=== PATIENT | male | born 1990 | race Caucasian/White ===

== ENCOUNTER 2016-10-16 17:06 | Inpatient (IN) | payer OTHER ==
[2016-10-16] MEDS ORDERED: OXYCODONE-ACETAMINOPHEN 5-325 MG TABLET PO ONE (17:25)
--- NOTE | 2016-10-16 17:27 | ER Document Report ---
ED Medical Screen (RME) - General Chief Complaint: Abscess Stated Complaint: POSSIBLE ABCESS Notes: 26-year-old male complains of a rectal abscess that started about 5 days ago getting worse and began with fever yesterday. No underlying medical problems. TRAVEL OUTSIDE OF THE [place] IN LAST 30 DAYS: No - Related Data Allergies/Adverse Reactions: No Known Allergies Allergy (Verified 10/16/16 17:09) Past Medical History Renal/ Medical History: Denies: Hx Peritoneal Dialysis Physical Exam - Vital signs Vitals: Temp Pulse Resp BP Pulse Ox 100.2 F 115 H 16 151/82 H 98 10/16/16 17:10 10/16/16 17:10 10/16/16 17:10 10/16/16 17:10 10/16/16 17:10 Course - Vital Signs Vital signs: Temp Pulse Resp BP Pulse Ox 100.2 F 115 H 16 151/82 H 98 10/16/16 17:10 10/16/16 17:10 10/16/16 17:10 10/16/16 17:10 10/16/16 17:10
[2016-10-16] MEDS ORDERED: NORMAL SALINE 1000 ML 1,000 ML IV ONE (18:03)
--- NOTE | 2016-10-16 18:08 | ER Document Report ---
ED Skin Rash/Insect Bite/Abscs - General Chief Complaint: Abscess Stated Complaint: POSSIBLE ABCESS Time seen by provider: 18:03 Mode of Arrival: Ambulatory Information source: Patient Notes: 26-year-old male presents to ED for complaint of pain and an abscess at between the back of his scrotum and his anus. Started about 5 days ago pains been getting worse daily. Started having a fever yesterday. Has a past medical history of kidney stones depression anxiety and PTSD and insomnia. He is a marine. TRAVEL OUTSIDE OF THE [place] IN LAST 30 DAYS: No - HPI Patient complains to provider of: Tender/swollen area Onset: Other Onset/Duration: Gradual - 5 days Quality of pain: Sharp, Throbbing Severity: Moderate Pain Level: 4 Skin Character: Abscess Skin Temperature: Hot Quality of rash: Painful Exacerbated by: Denies Relieved by: Denies Similar symptoms previously: No Recently seen / treated by doctor: No - Related Data Allergies/Adverse Reactions: No Known Allergies Allergy (Verified 10/16/16 17:09) Past Medical History - General Information source: Patient - Social History Smoking Status: Former Smoker - States he just quit Cigarette use (# per day): No Chew tobacco use (# tins/day): No Smoking Education Provided: No Frequency of alcohol use: Social Drug Abuse: None - History of addiction to [employer] Occupation: Marine Lives with: Family Family History: Arthritis, CAD, COPD, CVA, DM, Hyperlipidemia, Hypertension, Malignancy, Thyroid Disfunction Patient has suicidal ideation: No Patient has homicidal ideation: No - Past Medical History Cardiac Medical History: Reports: None Pulmonary Medical History: Reports: None EENT Medical History: Reports: None Neurological Medical History: Reports: None Endocrine Medical History: Reports: None Renal/ Medical History: Reports: Hx Kidney Stones Malignancy Medical History: Reports None GI Medical History: Reports: None Musculoskeltal Medical History: Reports Hx Musculoskeletal Trauma - Fractured finger and he sliced part of his knee with a chain saw at 17 year Skin Medical History: Reports None Psychiatric Medical History: Reports: Hx Anxiety, Hx Depression, Hx Post Traumatic Stress Disorder, Other - Insomnia Traumatic Medical History: Reports: None Infectious Medical History: Reports: None Surgical Hx: Negative Past Surgical History: Reports: None - Immunizations Immunizations up to date: Yes Hx Diphtheria, Pertussis, Tetanus Vaccination: Yes Review of Systems - Review of Systems Constitutional: No symptoms reported EENT: No symptoms reported Cardiovascular: No symptoms reported Respiratory: No symptoms reported Gastrointestinal: No symptoms reported Genitourinary: No symptoms reported Male Genitourinary: No symptoms reported Musculoskeletal: No symptoms reported Skin: Other - Tender slowly area starting at the back of the scrotum almost to the anus Hematologic/Lymphatic: No symptoms reported Neurological/Psychological: No symptoms reported -: Yes All other systems reviewed and negative Physical Exam - Vital signs Vitals: Temp Pulse Resp BP Pulse Ox 100.2 F 115 H 16 151/82 H 98 10/16/16 17:10 10/16/16 17:10 10/16/16 17:10 10/16/16 17:10 10/16/16 17:10 Interpretation: Hypertensive, Tachycardic, Febrile - General General appearance: Appears well, Alert - HEENT Head: Normocephalic, Atraumatic Eyes: Normal Pupils: PERRL - Respiratory Respiratory status: No respiratory distress Chest status: Nontender Breath sounds: Normal Chest palpation: Normal - Cardiovascular Rhythm: Regular Heart sounds: Normal auscultation Murmur: No - Abdominal Inspection: Normal Distension: No distension Bowel sounds: Normal Tenderness: Nontender Organomegaly: No organomegaly - Back Back: Normal, Nontender - Extremities General upper extremity: Normal inspection, Nontender, Normal color, Normal ROM , Normal temperature General lower extremity: Normal inspection, Nontender, Normal color, Normal ROM , Normal temperature, Normal weight bearing. No: Robbie's sign - Neurological Neuro grossly intact: Yes Cognition: Normal Orientation: AAOx4 Gil Coma Scale Eye Opening: Spontaneous Kerrick Coma Scale Verbal: Oriented Gil Coma Scale Motor: Obeys Commands Kerrick Coma Scale Total: 15 Speech: Normal Motor strength normal: LUE, RUE, LLE, RLE Sensory: Normal - Psychological Associated symptoms: Normal affect, Normal mood - Skin Skin Temperature: Warm Skin Moisture: Dry Skin Color: Normal Skin irregularity: Abscess - Between scrotum and anus Course - Re-evaluation Re-evalutation: 10/16/16 18:40 Consulted surgeon for a abscess between the scrotum and anus. He came to the room and saw the patient. Stated to keep the patient nothing by mouth get the anabolic's going in the IV fluids:. He said he will check back to take him to surgery later. He states he is in the middle of the case. - Vital Signs Vital signs: Temp Pulse Resp BP Pulse Ox 102.4 F H 115 H 16 151/82 H 98 10/16/16 20:16 10/16/16 17:10 10/16/16 17:10 10/16/16 17:10 10/16/16 17:10 - Laboratory Result Diagrams: 10/16/16 18:25 10/16/16 18:25 Laboratory results interpreted by me: 10/16/16 10/16/16 10/16/16 18:25 18:25 20:28 WBC 11.3 H RBC 4.15 L Hgb 12.6 L Hct 36.2 L Seg Neutrophils % 78.3 H Lymphocytes % 10.3 L Absolute Neutrophils 8.8 H Creatinine 1.27 H AST 15 L Urine Urobilinogen 4.0 H - Consults Dr Reynoso Time consulted: 18:30 Reason for consultation: 10/16/16 18:41 abscess between scrotum and anus Discharge - Discharge Clinical Impression: Abscess of perineum Disposition: ADMITTED INPATIENT Admitting Provider: Surgicalist - [facility] Admitted: Surgical Floor
[2016-10-16] MEDS ORDERED: CLINDAMYCIN 600 MG/D5W RTU 50 ML IV ONE (18:15)
[2016-10-16 18:56] LABS: ABSOLUTE LYMPHOCYTES (AUTO) 1.2 10^3/uL (0.5-4.7); ABSOLUTE MONOCYTES (AUTO) 1.2 10^3/uL (0.1-1.4); ABSOLUTE NEUT (AUTO) 8.8 10^3/uL (1.7-8.2); BASOPHILS % (AUTO) 0.2 % (0-2); EOSINOPHILS % (AUTO) 0.4 % (0-6); HEMATOCRIT 36.2 % (37.9-51.0); HEMOGLOBIN 12.6 g/dL (13.5-17.0); HGB HCT DIFFERENCE 1.6; LYMPHOCYTES % (AUTO) 10.3 % (13-45); MEAN CORPUSCULAR HEMOGLOBIN 30.4 pg (27.0-33.4); MEAN CORPUSCULAR HGB CONC 34.9 g/dL (32.0-36.0); MEAN CORPUSCULAR VOLUME 87 fl (80-97); MONOCYTES % (AUTO) 10.8 % (3-13); RED BLOOD COUNT 4.15 10^6/uL (4.35-5.55); RED CELL DISTRIBUTION WIDTH 11.6 % (11.5-14.0); SEGMENTED NEUTROPHILS % (AUTO) 78.3 % (42-78); WHITE BLOOD COUNT 11.3 10^3/uL (4.0-10.5)
[2016-10-16 19:08] LABS: ALANINE AMINOTRANSFERASE 27 U/L (21-72); ALBUMIN 4.1 g/dL (3.5-5.0); ALKALINE PHOSPHATASE 55 U/L (38-126); ANION GAP 13 (5-19); ASPARTATE AMINO TRANSFERASE 15 U/L (17-59); BILIRUBIN,DIRECT 0.2 mg/dL (0.0-0.4); BILIRUBIN,TOTAL 1.2 mg/dL (0.2-1.3); BLOOD UREA NITROGEN 15 mg/dL (7-20); CALCIUM 9.3 mg/dL (8.4-10.2); CARBON DIOXIDE 28 mmol/L (22-30); CHLORIDE 99 mmol/L (98-107); CREATININE RESULT 1.27 mg/dL (0.52-1.25); GLUCOSE 101 mg/dL (75-110); POTASSIUM 4.3 mmol/L (3.6-5.0); SODIUM 139.7 mmol/L (137-145); TOTAL PROTEIN 6.7 g/dL (6.3-8.2)
[2016-10-16] MEDS ORDERED: KETOROLAC TROMETHAMINE INJ/PF 30 MG/1 ML SDV IV ONE (20:38)
[2016-10-16 20:39] LABS: APPEARANCE,URINE SLIGHTLY-CLOUDY; BILIRUBIN,URINE NEGATIVE (NEGATIVE); GLUCOSE, URINE NEGATIVE (NEGATIVE); KETONES,URINE NEGATIVE (NEGATIVE); LEUKOCYTE ESTERASE,URINE NEGATIVE (NEGATIVE); NITRITE,URINE NEGATIVE (NEGATIVE); PROTEIN,URINE NEGATIVE (NEGATIVE); URINE SPECIFIC GRAVITY 1.018
--- NOTE | 2016-10-16 21:19 | HISTORY AND PHYSICAL E ---
History and Physical NAME: NIKOLAS SANTOS : 1990 AGE: 26Y ADMITTED: 10/16/2016 ROOM: CHIEF COMPLAINT: Pain in the perineal area. HISTORY OF PRESENT ILLNESS: This is a 26-year-old male who has been complaining of gradually worsening pain in the perineal area for the past 5 days. He admits to having some difficulty with bowel movement. Denies any dysuria. He has a low-grade fever. REVIEW OF SYSTEMS: As in HPI. Denies any chest pain, shortness of breath, or balance problems. No headaches or earaches. PAST MEDICAL HISTORY: [place] teeth removal. He had narcotic addiction about 3 years ago. ALLERGIES: None known. FAMILY HISTORY: Non-contributory. SOCIAL HISTORY: Denies smoking. Drinks socially. No drug use at the present time. He did have a history of narcotic addiction according to his . PHYSICAL EXAMINATION: GENERAL: A well-developed, well-nourished, 26-year-old male, alert and oriented, complaining of perineal pain. HEENT: Neck is supple. No thyromegaly. LUNGS: Clear. HEART: Regular sinus rhythm. ABDOMEN: Soft, nontender. GENITOURINARY: He has some redness in the perineal area just above the rectum just at the area of the scrotum. This is noted to be mildly swollen and tender. IMPRESSION: Perineal abscess. PLAN: IV antibiotics. N.p.o. Hydration. The patient is going for a CT scan tonight and possibly do an I and D of the abscess early a.m. Blood cultures were obtained and started already on clindamycin 900 mg IV q.6 hours. DICTATING PHYSICIAN: MARIAH CAMPOS M.D. [id number] PHY#: [id number] ID: [id number] JOB#: [id number] ACCT: [id number] cc:John RODRIGUES MD
[2016-10-16] MEDS ORDERED: NORMAL SALINE 1000 ML 1,000 ML IV PRN (23:26)
[2016-10-16] MEDS ORDERED: CLINDAMYCIN IV ONE (23:40)
[2016-10-16] MEDS ORDERED: D5W RTU IV ONE (23:40)
[2016-10-16] MEDS: CLINDAMYCIN 900 MG/D5W RTU 50 ML IV SCH (23:48)
[2016-10-17] MEDS: KETOROLAC TROMETHAMINE INJ/PF 30 MG/1 ML SDV IV PRN ×3 (02:52→22:50)
[2016-10-17] MEDS: CLINDAMYCIN 900 MG/D5W RTU 50 ML IV SCH ×4 (05:50→23:00)
[2016-10-17] MEDS ORDERED: ACETAMINOPHEN 325 MG TABLET ONE (08:26)
[2016-10-17] MEDS: METRONIDAZOLE 500 MG/NS RTU 100 ML IV SCH ×3 (08:41→20:20)
--- NOTE | 2016-10-17 08:47 | PDOC PROGRESS REPORT ---
Subjective Progress Note for:: 10/17/16 Subjective:: Perineal pain Physical Exam Vital Signs: Temp Pulse Resp BP Pulse Ox 100.3 F 95 18 126/56 H 97 10/17/16 07:45 10/17/16 07:45 10/17/16 07:45 10/17/16 07:45 10/17/16 07:45 Intake & Output 10/16/16 10/17/16 10/18/16 06:59 06:59 06:59 Intake Total 904 Balance 904 General appearance: PRESENT: cooperative, mild distress - Alert and nontoxic but obviously in pain. Respiratory exam: PRESENT: clear to auscultation deny Cardiovascular exam: PRESENT: RRR GI/Abdominal exam: PRESENT: other - Soft, nondistended nontender to palpation. Rectal exam: PRESENT: other - Digital rectal exam does not reveal any focal tenderness nor fluctuance however there is a 5 x 3 cm region of erythema and swelling and fluctuance and tenderness between the anus and the scrotum. There is no erythema nor tenderness in the scrotum nor the groin. Assessment & Plan - Diagnosis (1) Abscess of perineum Is this a current diagnosis for this admission?: YesPlan: I do not think he has a perianal abscess based on my exam. But he does have a perineal abscess. I will plan incision and drainage of the abscess in the operating room. I have discussed with the patient the risk and benefits of the procedure including risk of the infection, bleeding, adjacent structure injury, prolonged wound healing. Patient understands and agrees to proceed.
[2016-10-17] MEDS ORDERED: PROPOFOL INJ 200 MG/20 ML VIAL IV ONE (09:09)
[2016-10-17] MEDS ORDERED: MIDAZOLAM 2 MG/2 ML INJ ONE (09:09)
[2016-10-17] MEDS ORDERED: FENTANYL CITRATE INJ/PF 250 MCG/5 ML AMPULE ONE (09:09)
[2016-10-17] MEDS ORDERED: ACETAMINOPHEN 0 ML IV ONE (09:09)
[2016-10-17] MEDS ORDERED: BUPIVACAINE HCL 0.25 % INJ/PF (2.5 MG/1 ML) 30 ML VIAL ONE ×2 (09:30→09:31)
[2016-10-17] MEDS ORDERED: BUPIVACAINE HCL 0.25% /EPINEPHRINE INJ/PF 30 ML SDV ONE (09:31)
[2016-10-17] MEDS ORDERED: IBUPROFEN INJ 800 MG/8 ML VIAL IV ONE (09:47)
[2016-10-17] MEDS ORDERED: DIPHENHYDRAMINE HCL 50 MG/ML VIAL IV PRN (10:25)
[2016-10-17] MEDS ORDERED: MORPHINE SULFATE 10 MG/ML INJ IV PRN (10:25)
[2016-10-17] MEDS ORDERED: MEPERIDINE HCL/PF INJ 25 MG/1 ML DISP.SYRIN IV PRN (10:25)
[2016-10-17] MEDS ORDERED: OXYCODONE-ACETAMINOPHEN 5-325 MG TABLET PO PRN ×2 (10:25)
[2016-10-17] MEDS ORDERED: PROMETHAZINE HCL INJ 25 MG/1 ML VIAL IV PRN ×2 (10:25)
[2016-10-17] MEDS ORDERED: FENTANYL CITRATE INJ/PF 100 MCG/2 ML AMPUL IV PRN ×3 (10:25)
--- NOTE | 2016-10-17 10:28 | Operative Report ---
Operative Report DATE OF SURGERY: 10/17/16 PREOPERATIVE DIAGNOSIS: Perineal abscess POSTOPERATIVE DIAGNOSIS: 3 x 5 cm perineal abscess OPERATION: Perineal abscess incision and drainage SURGEON: MICHEL DELUNA ANESTHESIA: GA TISSUE REMOVED OR ALTERED: Pus sent for Gram stain and culture COMPLICATIONS: None ESTIMATED BLOOD LOSS: minimal INTRAOPERATIVE FINDINGS: 3 x 5 cm abscess pocket in the perineal region. PROCEDURE: Informed consent was obtained. Patient was brought to the operating room. After saturation induction of general anesthesia patient was placed in a prone jackknife position and his buttocks taped apart. His perineum was prepped and draped in usual sterile fashion the abscess laid between the anus and the scrotum local anesthetic was administered 18-gauge needle was placed into the abscess cavity aspirating copious amount of the very thick pus. This perineal abscess was opened with a scalpel. Skin edge hemostasis was obtained with electrocautery. The abscess cavity measured about 3 x 5 cm in size. It was irrigated out. Hemostasis appeared to be good. Digital palpation revealed no undrained tracts. It appeared the confine to the perineum and not extending to the perianal region. It was packed with gauze. Patient tolerated procedure well with no apparent complications.
[2016-10-17] MEDS ORDERED: QUETIAPINE FUMARATE 25 MG TABLET PO PRN (10:30)
[2016-10-17] MEDS ORDERED: LIDOCAINE 2% INJ-PF (20 MG/ML) 10 ML AMPUL ONE (14:02)
[2016-10-17] MEDS ORDERED: SUCCINYLCHOLINE CHLORIDE INJ 200 MG/10 ML VIAL ONE (14:02)
[2016-10-17] MEDS: ONDANSETRON HCL INJ/PF 4 MG/2 ML SDV IV PRN (15:08)
[2016-10-17] MEDS: MORPHINE SULFATE 10 MG/ML INJ IV PRN ×2 (15:08→19:30)
[2016-10-18] MEDS: MORPHINE SULFATE 10 MG/ML INJ IV PRN ×4 (02:58→19:02)
[2016-10-18] MEDS: METRONIDAZOLE 500 MG/NS RTU 100 ML IV SCH ×4 (02:58→20:55)
[2016-10-18] MEDS: CLINDAMYCIN 900 MG/D5W RTU 50 ML IV SCH ×4 (05:53→23:33)
[2016-10-18] MEDS: ACETAMINOPHEN 325 MG TABLET PO PRN ×2 (08:39→20:56)
[2016-10-18] MEDS: ONDANSETRON HCL INJ/PF 4 MG/2 ML SDV IV PRN (08:39)
--- NOTE | 2016-10-18 10:53 | PDOC PROGRESS REPORT ---
Subjective Progress Note for:: 10/18/16 Subjective:: Still having some pain; otherwise uneventful night. Physical Exam Vital Signs: Temp Pulse Resp BP Pulse Ox 98.8 F 83 16 111/52 L 96 10/18/16 00:03 10/18/16 00:03 10/18/16 00:03 10/18/16 00:03 10/18/16 00:03 Intake & Output 10/17/16 10/18/16 10/19/16 06:59 06:59 06:59 Intake Total 904 8369 Output Total 610 Balance 904 7759 Rectal exam: PRESENT: other - Patient rolled in left lateral decubitus position. Packing removed. No active drainage. Perineum anteriorly still erythematous and tender Assessment & Plan - Diagnosis (1) Abscess of perineum Is this a current diagnosis for this admission?: YesPlan: 1. Status post operative drainage left perineal abscess, packing removed, low pain threshold, still with residual erythema and edema anteriorly. 2. We'll get into the shower, ambulate , and continue intravenous antibiotics.
[2016-10-19] MEDS: METRONIDAZOLE 500 MG/NS RTU 100 ML IV SCH ×2 (04:15→09:47)
[2016-10-19] MEDS: CLINDAMYCIN 900 MG/D5W RTU 50 ML IV SCH (05:32)
--- NOTE | 2016-10-19 08:03 | DISCHARGE SUMMARY E ---
Discharge Summary NAME: NIKOLAS SANTOS : 1990 AGE: 26Y ADMITTED: 10/16/2016 DISCHARGED: ADMITTING DIAGNOSIS: Perineal abscess, perineal cellulitis. DISCHARGE DIAGNOSIS: Perineal abscess, perineal cellulitis. OPERATIVE INTERVENTION: Incision and drainage of the perineal abscess. The patient was admitted for pain management and also management of a perineal cellulitis. After admission, the patient continued to receive IV antibiotics. The pain is better, cellulitis resolving. On examination, wound is clean. Pain is under control. DISCHARGE PLAN: Admitting and discharge medications for pain. Stool softener. Follow up in the outpatient surgical clinic in 2 weeks. DICTATING PHYSICIAN: PRASANNA CASTRO M.D. [id number] PHY#: [id number] ID: [id number] JOB#: [id number] ACCT: [id number] cc:John RODRIGUES MD, M.D. JACQUELINE AUGSBURGER, PA >
[2016-10-19] MEDS: MORPHINE SULFATE 10 MG/ML INJ IV PRN (09:45)
[2016-10-19 12:26] VITALS: BP 115/61
== END 2016-10-19 12:45 | disposition home or self-care (01) | DRG 581 ==
LOC: ER 17:06 → EH 21:06 → UNDOADMIN 21:06 → 5 22:59 → EH 22:59 → 5 23:16 → EH 23:16
PROVIDERS: ADMIT Surgery; ATTEND Surgery
PROC: 0H99XZZ Drainage of Perineum Skin, External Approach (ICD-10-PCS; principal; 2016-10-17 09:30)
DX: L02.215 Cutaneous abscess of perineum (principal); B96.20 Unspecified Escherichia coli [E. coli] as the cause of diseases classified elsewhere; N49.2 Inflammatory disorders of scrotum; F41.8 Other specified anxiety disorders; F43.10 Post-traumatic stress disorder, unspecified; Z87.891 Personal history of nicotine dependence
CPT/HCPCS: 36415; 400; 80053; 81001; 85025; 87040; 87070; 87075; 87077; 87186; 87205; J0131; J0330; J1741; J1885; J2250; J2270; J2405; J2704; J3010; J3490; J7030